=== PATIENT | male | born 1975 | race Caucasian/White ===

== ENCOUNTER 2021-06-15 05:38 | Outpatient (CLI) | payer BC ==
[~2021-06-15] VITALS: Ht 172.7 cm; Wt 70.4 kg
== END 2021-06-15 14:15 | disposition home or self-care (01) ==
LOC: PREOP 05:38
PROVIDERS: ATTEND Surgery
DX: Z01.818 Encounter for other preprocedural examination (principal)

== ENCOUNTER 2021-06-22 10:55 | Day surgery (SDC) | payer BC ==
[~2021-06-22] VITALS: Ht 172.2 cm; Wt 74.0 kg
[2021-06-22] MEDS ORDERED: LACTATED RINGERS 1,000 ML IV STA (10:57)
--- OUTSIDE RECORDS SUMMARY | 2021-06-22 10:59 | XMS REPORT | CCD ---
Author Author Azael German Organization Meagan German MD, [facility] Address [address] [place] [address] Phone Care Team Providers Care Beef Splitter Name Role Phone Meagan German PP Unavailable CCM Unavailable Summary Purpose Interface Exchange Insurance Providers Payer name Policy type / Coverage type Covered democrat ID Effective Begin Date Effective End Date [facility] [id number] W 2015 Unknown Family history Brother Diagnosis Age At Onset No Family Disease Entered N/A Father Diagnosis Age At Onset Diabetes Unknown Hypertension Unknown Hyperlipidemia Unknown Daughter Diagnosis Age At Onset No Family Disease Entered N/A Father Diagnosis Age At Onset Diabetes mellitus Type 2 Unknown Hypertension Unknown Colon cancer Unknown Grandmother Diagnosis Age At Onset Stroke Unknown Grandmother Diagnosis Age At Onset No Family Disease Entered N/A Runs in the family Diagnosis Age At Onset Hypertension Unknown Diabetes Unknown Arthritis Unknown Hyperlipidemia Unknown Mother Diagnosis Age At Onset Liver Failure Unknown Daughter Diagnosis Age At Onset No Family Disease Entered N/A Social History Social History Element Codes Description Effective Dates Marital status Unknown 07/04/2011 Marital status Unknown 07/04/2011 Number of children Unknown 2 07/04/[address]: 555404912 Never smoker 07/04/[address]: 245868260 Never smoker 07/04/[address]: 808528727 Never drinks alcohol [address]: 389127024 Never drinks alcohol 2010 Has the patient ever used illegal drugs? Unknown Has nev er used illegal drugs 07/04/2011 Allergies, Adverse Reactions, Alerts Substance Reaction Codes Entered Date Inactivated Date Status * NO KNOWN DRUG ALLERGIES Unknown 07/04/2011 No Inactiv e Date Active * NO KNOWN DRUG ALLERGIES Unknown 07/04/2011 No Inactiv e Date Active Problems Condition Codes Effective Dates Condition Status Encounter for general adult medical examination withou t abnormal findings ICD- 10: Z00.00 ICD-9: V70.0 04/22/2021 Active Abscess of right thigh ICD-10: L02.415 ICD-9: 682.6 05/25/2020 Active Benign paroxysmal vertigo, bilateral ICD-10: H81.13 ICD-9: 386.11 05/17/2018 Active ACUTE URI ICD-9: 465.9 07/15/2011 Active Cough ICD-9: 786.2 07/15/2011 Active Heart murmur Unknown 07/04/2011 Active Mononucleosis Unknown 07/04/2011 Active Seizures Unknown 07/04/2011 Active Annual physical exam ICD-9: V70.0 07/04/2011 Active Atherosclerosis ICD-9: 440.9 07/04/2011 Active Elevated blood pressure (not hypertension) ICD-9: 796.2 07/04 Active Medications Medication Codes Instructions Start Date Stop Date Status Fill Instructions doxycycline hyclate 100 mg tablet RxNorm: 9940723 1 Tabl et(s) Oral two times a day 06/10/2020 06/09/2020 Inactive doxycycline hyclate 100 mg tablet RxNorm: 0766921 1 Tabl et(s) Oral two times a day 06/10/2020 06/20/2020 Inactive mupirocin 2 % topical ointment RxNorm: 977013 1 Applica tion Topical two times a day 05/25/2020 No Stop Date Active tramadol 50 mg tablet RxNorm: 398909 1-2 Tablet(s) Oral four times a day as needed for pain 05/25/2020 No Stop Date Active Bactrim DS 800 mg-160 mg tablet RxNorm: 706973 1 Tablet(s) Oral two times a day 05/25/2020 06/04/2020 Inactive Medication Administered No Medication Administered data Immunizations No Immunization data Results Observation Observation Code Item Item Code Result Date S ervice Location Comp Metabolic Qif875 NA 139 mEq/L 05/25/2018 Unkn own Comp Metabolic Mtj556 K 4.3 mEq/L 05/25/2018 Unkn own Comp Metabolic Ihw685 CL 104 mEq/L 05/25/2018 Unkn own Comp Metabolic Crk549 CO2 27.0 mEq/L 05/25/2018 Unk nown Comp Metabolic Wgz056 ANION GAP 12 05/25/2018 Unkn own Comp Metabolic Tpl939 GLUCOSE 96 mg/dL 05/25/2018 Unkn own Comp Metabolic Isg643 Creat 1.1 mg/dL 05/25/2018 Unkn own Comp Metabolic Obe646 eGFR 76 ml/min/1.73m2 05/25/20 18 Unknown Comp Metabolic And457 BUN 15 mg/dL 05/25/2018 Unkn own Comp Metabolic Ccz438 B/C Ratio 13.4 Ratio 05/25/2018 Unk nown Comp Metabolic Csn785 CALCIUM 9.3 mg/dL 05/25/2018 Unkn own Comp Metabolic Vtb755 ALK PHOS 74 U/L 05/25/2018 Unkn own Comp Metabolic Twv690 AST(SGOT) 15 U/L 05/25/2018 Unkn own Comp Metabolic Wox616 ALT(SGPT) 15 U/L 05/25/2018 Unkn own Comp Metabolic Jmt467 BILI T 1.2 mg/dL 05/25/2018 Unkn own Comp Metabolic Wvo788 ALBUMIN 4.2 g/dL 05/25/2018 Unkn own Comp Metabolic Llr489 TPRO 6.5 g/dL 05/25/2018 Unkn own Comp Metabolic Sld779 GLOB 2.3 g/dL 05/25/2018 Unkn own Comp Metabolic Yud107 A/G Ratio 1.9 Ratio 05/25/2018 Unkn own Comp Metabolic Asn153 Osmo 278 mOsmo 05/25/2018 Unkn own Cbc With Differential Ord2 WBC 6.36 K/ul 05/25/20 18 Unknown Cbc With Differential Ord2 RBC 5.75 M/ul 05/25/20 18 Unknown Cbc With Differential Ord2 HGB 15.4 g/dl 05/25/20 18 Unknown Cbc With Differential Ord2 HCT 44.9 % 05/25/20 18 Unknown Cbc With Differential Ord2 Neut% 60.6 % 05/25/20 18 Unknown Cbc With Differential Ord2 MCV 78.1 fl 05/25/20 18 Unknown Cbc With Differential Ord2 Lymph% 25.5 % 05/25/20 18 Unknown Cbc With Differential Ord2 MCH 26.8 pg 05/25/20 18 Unknown Cbc With Differential Ord2 [place]% 9.0 % 05/25/20 18 Unknown Cbc With Differential Ord2 MCHC 34.3 pg 05/25/20 18 Unknown Cbc With Differential Ord2 Eos% 4.7 % 05/25/20 18 Unknown Cbc With Differential Ord2 PLT 182 K/ul 05/25/20 18 Unknown Cbc With Differential Ord2 Baso% 0.2 % 05/25/20 18 Unknown Cbc With Differential Ord2 RDW 14.3 % 05/25/20 18 Unknown Cbc With Differential Ord2 Neut ABS# 3.86 K/ul 05/25/20 18 Unknown Cbc With Differential Ord2 Lymph ABS# 1.62 K/ul 018 Unknown Cbc With Differential Ord2 [place] ABS# 0.6 K/ul 05/25/20 18 Unknown Cbc With Differential Ord2 Eos ABS# 0.3 K/ul 05/25/20 18 Unknown Cbc With Differential Ord2 Baso ABS# 0.0 K/ul 05/25/20 18 Unknown Lipid Ord30 CHOL 154 mg/dL 05/25/2018 Unknown Lipid Ord30 HDL 42.0 mg/dl 05/25/2018 Unknown Lipid Ord30 TRIG 74 mg/dL 05/25/2018 Unknown Lipid Ord30 LDL 97 mg/dL 05/25/2018 Unknown Lipid Ord30 C/HDL 3.7 Ratio 05/25/2018 Unknown Tsh Ord6 TSH (3rd IS) 2.76 uIU/mL 05/25/2018 Unkn own Procedures Procedure Codes Date DRAINAGE OF SKIN ABSCESS CPT-4: 02823 05/25/2020 Vital Signs Date Vital 04/22/2021 Blood Pressure 1: 144/80 Code: 8480-6 BMI: 23.6 Code: 50000-0 Heart Rate 1: 71 bpm Height: 5'8" Code: 8302-2 SpO2: 99% Temperature: 3 6.2 (C) / 97.2 (F) Weight: 155 lbs Code: 57427-2 05/25/2020 Blood Pressure 1: 146/78 Code: 8480-6 BMI: 22.5 Code: 05507-1 Heart Rate 1: 68 bpm Height: 5'8" Code: 8302-2 SpO2: 99% Temperature: 3 6.7 (C) / 98.0 (F) Weight: 148 lbs Code: 01242-3 05/17/2018 Blood Pressure 1: 136/78 Code: 8480-6 BMI: 22.8 Code: 19675-5 Heart Rate 1: 68 bpm Height: 5'8" Code: 8302-2 SpO2: 98% Weight: 150 lb s Code: 94751-6 07/15/2011 Blood Pressure 1: 122/70 Code: 8480-6 BMI: 21.4 Code: 52769-4 Heart Rate 1: 64 bpm Height: 5'8" Code: 8302-2 Temperature: 36.5 (C) / 97.7 (F) Weight: 141 lbs Code: 17342-8 07/04/2011 Blood Pressure 1: 138/84 Code: 8480-6 BMI: 21.7 Code: 07834-6 Heart Rate 1: 56 bpm Height: 5'8" Code: 8302-2 Respiratory Rate: 12 bpm Weight: 1 43 lbs Code: 54538-8 Functional Status No Functional Status data Reason For Visit Reason For Visit Effective Dates Notes hypertension 04/22/2021 skin lesion 05/25/2020 vertigo 05/17/2018 sore throat 07/15/2011 well man exam (18-39 years) 07/04/2011 Encounters Encounter Performer Location Codes Date (48660) PREV VISIT EST AGE 40-64 Diagnosis: Encounter for general adult medical examination without abnormal findings[ICD10: Z00.00] Meagan German MD, [facility] CPT-4: 60967 04/22/2021 OFFICE VISIT, NEW - LEVEL 3 Diagnosis: Benign paroxysmal vertigo, bilateral[ICD10: H81.13] Brynn German MD, [facility] CPT-4: 08357 05/17/2018 10862 EST. PATIENT, LEVEL III Diagnosis: ACUTE URI[ICD9: 465.9] Diagnosis: Cough[ICD9: 786.2] Meagan German MD, [facility] CPT-4: 27258 07/15/2011 04272 EST. PATIENT, LEVEL III Diagnosis: Elevated blood pressure (not hypertension)[ICD9: 796.2] Diagnosis: Atherosclerosis[ICD9: 440.9] Meagan German MD [facility] CPT-4: 77006 07/04/2011 Plan of Care Planned Activity Notes Codes Status Date Visit Plan: Well Adult - pt was counsele d about diet, exercise, and encouraged to follow a heart healthy diet and increase activity level. The patient was instructed to RTC yearly for well adult exams and PRN for acute illnesses. The pt was also instructed to have yearly labs for check of cholesterol, thyroid, chem panel, CBC, and renal functioning. 04/22/2021 Appointment: Meagan German WPtel: [facility] (15 min) Moderate 04/22/2021 Patient Education: Patient Medication Summary Completed 04/22/2021 Care Plan: Cbc With Differential Pending 04/22/2021 Care Plan: Comp Metabolic Pending Care Plan: Lipid Pending 04/22/2021 Care Plan: Tsh Pending 04/22/2021 Visit Plan: Right thigh - prepped and 1% lidocaine with epi 2ml utiilzed to infiltrate the abscess. Small incision made with #11 blade scalpel with small amount of bloody purulent drainage noted. Wound cleaned with sterile normal saline and clean dressing applied - Patient tolerated the procedure well Abscess/Cellulitis - The patient was instructed in appropriate wound care. The patient was instructed to use the antibiotic ointment as per RX. The patient is to call for any change in symptoms, increase in size of the lesion, increase in pain. 05/25/2020 Appointment: Brynn Lee WPtel: [address] [place] [address] (30 min) Complex 05/25/2020 Patient Education: Patient Medication Summary Completed 05/25/2020 Visit Plan: BPPV - Benign Paroxysmal Pos itional Vertigo - discussed diagnosis with the patient, offered the pt the appropriate additional information in hand- out. Pt instructed in home exercises to help alleviate and prevent future recurrent episodes of vertigo. Pt informed that if symptoms worsen, call the office for further instructions/medication interventions. 05/17/2018 Appointment: Brynn Lee WPtel: [address] [place], [place] [id number] New Patient 05/17/2018 Patient Education: Patient Medication Summary Completed 05/17/2018 Visit Plan: URI - Pt advised to increase fluids, vitamin C. Discussed natural and expected course of this diagnosis and need to alert me if symtpoms do not follow expected course, or if any worse. RX sent to patient's pharmacy. URI - Pt advised to increase fluids, vitamin C. Discussed natural and expected course of this diagnosis and need to alert me if symtpoms do not follow expected course, or if any worse. RX sent to patient's pharmacy. 07/15/2011 Appointment: Meagan German WPtel: [facility] [place] Other 07/15/2011 Patient Education: Patient Medication Summary Completed 07/15/2011 Patient Education: Colds Completed 07/2011 Appointment: Meagan German WPtel: [facility] [place] New Patient 07/04/2011 Patient Education: Patient Medication Summary Completed 07/04/2011 Instructions Comment . Well Adult - pt was counseled about di et, exercise, and encouraged to follow a heart healthy diet and increase activity level. The patient was instructed to RTC yearly for well adult exams and PRN for acute illnesses. The pt was also instructed to have yearly labs for check of cholesterol, thyroid, chem panel, CBC, and renal functioning. . Right thigh - prepped and 1% lidocaine with epi 2ml utiilzed to infiltrate the abscess. Small incision made with #11 blade scalpel with small amount of bloody purulent drainage noted. Wound cleaned with sterile normal saline and clean dressing applied - Patient tolerated the procedure well Abscess/Cellulitis - The patient was instructed in appropriate wound care. The patient was instructed to use the antibiotic ointment as per RX. The patient is to call for any change in symptoms, increase in size of the lesion, increase in pain. . BPPV - Benign Paroxysmal Positional Ve rtigo - discussed diagnosis with the patient, offered the pt the appropriate additional information in hand-out. Pt instructed in home exercises to help alleviate and prevent future recurrent episodes of vertigo. Pt informed that if symptoms worsen, call the office for further instructions/medication interventions. . URI - Pt advised to increase fluids, v itamin C. Discussed natural and expected course of this diagnosis and need to alert me if symtpoms do not follow expected course, or if any worse. RX sent to patient's pharmacy. URI - Pt advised to increase fluids, vitamin C. Discussed natural and expected course of this diagnosis and need to alert me if symtpoms do not follow expected course, or if any worse. RX sent to patient's pharmacy. Medical Equipment No Medical Equipment data Health Concerns Section Health Concerns data not found Goals Section Goals data not found Interventions Section Interventions data not found Health Status Evaluations/Outcomes Section Health Status Evaluations/Outcomes data not found Advance Directives No Advance Directive data
[2021-06-22] MEDS ORDERED: LACTATED RINGERS 1,000 ML IV ONE (11:02)
[2021-06-22 11:30] VITALS: BP 133/104
[2021-06-22] MEDS ORDERED: PROPOFOL INJECTION 50 ML IV ONE (12:31)
--- NOTE | 2021-06-22 13:03 | Progress Note-Post Operative ---
Post-Operative Progess Note Surgeon (s)/Seat Nailer (s) Surgeon SAUL WILKINSON DO Seat Nailer: na Pre-Operative Diagnosis family hx colon cancer Post-Operative Diagnosis rectal polyps Procedure & Operative Findings Date of Procedure 06/22/21 Procedure Performed/Findings colonoscopy c hot bx polypectomy x 2 and snare polypectomy x 1 Anesthesia Type per performance instructor Estimated Blood Loss Estimated blood loss (mL): scant Specimens/Packing Specimens Removed rectal polyps SAUL WILKINSON DO Jun 22, 2021 13:03
--- NOTE | 2021-06-22 13:03 | Anesthesia-General Post-Op ---
MAC Patient Condition Mental Status/LOC: Same as Preop Cardiovascular: Satisfactory Nausea/Vomiting: Absent Respiratory: Satisfactory Pain: Controlled Complications: Absent Post Op Complications Complications None Follow Up Care/Instructions Patient Instructions None needed. Anesthesiology Discharge Order Discharge Order Patient is doing well, no complaints, stable vital signs, no apparent adverse anesthesia problems. No complications reported per nursing. VALERI BERMUDEZ CRNA Jun 22, 2021 13:03
--- NOTE | 2021-06-22 13:04 | Discharge Inst-Simple/Standard ---
Discharge Inst-Standard Patient Instructions/Follow Up Plan of Care/Instructions/FU: 2 weeks Brie Activity as Tolerated: Yes Discharge Diet: Regular Diet SAUL WILKINSON DO Jun 22, 2021 13:04
[2021-06-22 13:05] VITALS: BP 108/66
[2021-06-22 13:10] VITALS: BP 129/81
[2021-06-22 13:35] VITALS: BP 132/87
[2021-06-22 13:44] VITALS: BP 132/87
--- NOTE | 2021-06-22 21:02 | OPERATIVE REPORT ---
DATE OF SERVICE: 06/22/2021 PREOPERATIVE DIAGNOSIS: Family history of colon cancer. POSTOPERATIVE DIAGNOSIS: Rectal polyps. PROCEDURES PERFORMED: Colonoscopy with hot polypectomy x2 and snare polypectomy x1. SURGEON: Saul Baird DO. ANESTHESIA: Per STAKING TECHNICIAN. ESTIMATED BLOOD LOSS: Scant. COMPLICATIONS: None. INDICATIONS FOR PROCEDURE: The patient is a 46-year-old male with family history of colon cancer. He understands the risks and benefits of the procedure and wished to proceed with the procedure. Consent was signed in the chart. DESCRIPTION OF PROCEDURE: The patient was taken to the endoscopy suite and placed in a left lateral recumbent position. Timeout was performed. Digital rectal exam was performed. There were no palpable polyps, masses or ulcerations. Scope was inserted in the rectum and advanced all the way to cecum with minimal difficulty. Prep was adequate. Scope was then slowly retracted back. There were no polyps, masses or ulcerations within the cecum, ascending, transverse, descending and sigmoid colon. Within the rectum, there were two small polyps, which hot biopsy polypectomy was performed. There was a larger polyp, which snare polypectomy was performed. These were obtained for specimen. Scope was retroflexed noting no other pathology. Scope was returned to its normal position, slowly withdrawn until completely removed, noting no other pathology. The patient tolerated the procedure well without any complications and taken to the recovery room in a stable condition. RECOMMENDATIONS: The patient will need repeat colonoscopy in three years. Any issues before that will be seen at that time. The patient will follow up on pathology in two weeks to discuss results. Job ID: [id number] DocumentID: [id number] Dictated Date: 06/22/2021 13:06:26 Welcome Desk Agent Date: 06/22/2021 21:01:17 Dictated By: SAUL BAIRD DO
== END 2021-06-22 14:05 | disposition home or self-care (01) ==
LOC: ENDO 10:55
PROVIDERS: ATTEND Surgery
DX: Z12.11 Encounter for screening for malignant neoplasm of colon (principal); D12.8 Benign neoplasm of rectum; Z80.0 Family history of malignant neoplasm of digestive organs

== ENCOUNTER → 2023-03-20 | Outpatient (CLI) | payer BC, OTHER ==
[~2023-03-20] MED LIST: IOHEXOL 350 MG/ML 100 ML (OMNIPAQUE 350) VIAL IV ONE; NS 100 ML (IVPB) BAG IV ONE
--- NOTE | 2023-03-20 17:33 | Diagnostic Imaging Report ---
PROCEDURE: CT neck soft tissue with and without contrast. TECHNIQUE: Helically acquired axial images were obtained through the neck both before and after the administration of intravenous contrast. Auto Exposure Controls were utilized during the CT exam to meet ALARA standards for radiation dose reduction. INDICATION: Right neck mass. COMPARISON: None. FINDINGS: The nasopharynx, oropharynx, and hypopharynx are normal. The larynx is normal. Scattered subcentimeter lymph nodes within the cervical chain. No pathologic lymphadenopathy. The parotid, submandibular gland, and thyroid gland are normal. The visualized paranasal sinuses and mastoids are clear. The globes and orbits are normal. The middle ear cavities are clear. Inspection of the site of the marker along the right aspect of the neck and sternocleidomastoid demonstrates no neck mass or lymphadenopathy. Included views of the lung apices are normal. The cervical spine is normal. IMPRESSION: No neck mass or lymphadenopathy. Dictated by: Dictated on workstation # [id number]
--- NOTE | 2023-03-20 17:41 | Diagnostic Imaging Report ---
EXAMINATION: Thyroid ultrasound TECHNIQUE: Multi view grayscale and color Doppler ultrasound of the thyroid obtained. HISTORY: Thyromegaly COMPARISON: None available. FINDINGS: The right thyroid lobe measures 4.6 x 1.8 x 1.2 cm. The left thyroid lobe measures 3.8 x 1.4 x 1.0 cm. Normal echogenicity and vascularity of the thyroid gland. The isthmus measures 0.2 cm. No nodules identified. Normal appearance of the soft tissues. IMPRESSION: Normal thyroid ultrasound. Dictated by: Dictated on workstation # [id number]
== END ==
LOC: RAD 11:17
PROVIDERS: ATTEND Physician Assistant
DX: E01.0 Iodine-deficiency related diffuse (endemic) goiter (principal); R60.0 Localized edema
CPT/HCPCS: 70492; 76536